=== PATIENT | female | born 1975 | race Caucasian/White ===

== ENCOUNTER → 2016-09-24 | Outpatient (CLI) | payer BC | LOC: MW.CHOBGYN 08:27 | PROVIDERS: ATTEND Nurse Practitioner Women's Health | DX: R39.9 Unspecified symptoms and signs involving the genitourinary system (principal) | CPT/HCPCS: 81001 ==

== ENCOUNTER 2022-09-06 14:11 | Emergency (ER) | payer BC ==
[2022-09-06] MEDS ORDERED: Ketorolac 30 MG/ML SDV IVPUSH ONE (14:39)
[2022-09-06] MEDS ORDERED: Ondansetron 4 MG/2 ML SDV IVPUSH ONE (14:39)
[2022-09-06] MEDS ORDERED: Sodium Chloride 0.9% 1,000 ML IV ONE (14:39)
[2022-09-06 15:13] LABS: CARBON DIOXIDE,CO2 25.5 mmol/L (21.0-32.0); POTASSIUM,K 3.8 mmol/L (3.5-5.1)
[2022-09-06] MEDS ORDERED: Iopamidol 755 MG/ML 500 ML Multipack Bottle IVPUSH ONE (15:50)
[2022-09-06 16:56] VITALS: BP 134/88; PULSE 68
== END 2022-09-06 16:55 | disposition home or self-care (01) ==
LOC: MW.ED 14:11
DX: D25.9 Leiomyoma of uterus, unspecified (principal); Z91.041 Radiographic dye allergy status
CPT/HCPCS: 36415; 74177; 80053; 81001; 83690; 85025; 96361; 96374; 96375; 99284; J1885; J2405; J7030; Q9967